=== PATIENT | female | born 1965 | race American Indian/Alaskan Native ===

== ENCOUNTER 2021-12-02 05:00 | Emergency (ER) | payer MEDICARE ==
[2021-12-02] MEDS ORDERED: DEXTROSE 50% IN WATER (25GM) 50 ML SYRINGE IV ONE (05:40)
--- NOTE | 2021-12-02 07:21 | Emergency Department Report ---
ED Seizure HPI - General Chief Complaint: Seizure Stated Complaint: DIABETIC SEIZURE Time Seen by Provider: 12/02/21 06:52 Source: patient Mode of arrival: Ambulatory Limitations: No Limitations - History of Present Illness Initial Comments: 56-year-old female the past medical history of diabetes, CAD, and hypertension presents to the hospital for seizure and hypoglycemia. Patient apparently had a seizure prior to arrival. Glucose of 59 in the ED. Patient received 1 amp of D50 and glucose improved to 97 1 hour later. Patient has had 1 cup of orange juice prior to my evaluation. She reports feeling better. Patient states her lately her sugar has been ranging from high to levels but she also has had decreased p.o. intake. She takes a short acting insulin with meals anywhere from 1-3 times a day and takes her long-acting insulin at 9 PM. Last night patient took her short acting insulin at 9 PM and was having persistent urination. She assumed her glucose was high and without rechecking her sugar took a long-acting insulin at midnight. Patient was supposed to take a long acting insulin at 9 PM. Patient endorses urinary frequency but denies dysuria, pain, or fever - Related Data Allergies Allergy/AdvReac Type Severity Reaction Status Date / Time azithromycin Allergy Hives Verified 12/02/21 05:43 vancomycin Allergy Hives Verified 12/02/21 05:43 ED Review of Systems ROS: Stated complaint: DIABETIC SEIZURE Other details as noted in HPI Comment: All other systems reviewed and negative ED Past Medical Hx - Past Medical History Hx Hypertension: Yes Hx Heart Attack/AMI: Yes Hx Diabetes: Yes - Surgical History Past Surgical History?: Yes Additional Surgical History: SPINE SURGERY. MRSA ED Physical Exam - General Limitations: No Limitations - Other Other exam information: General: No acute distress Head: Atraumatic Eyes: normal appearance ENT: Moist mucous membranes Neck: Normal appearance, no midline tenderness Chest: Clear to auscultation bilaterally CV: Regular rate and rhythm Abdomen: Soft, normal bowel sounds, nontender, nondistended, no rebound or guarding Back: Normal inspection Extremity: Normal inspection, full range of motion Neuro: Alert O x 3, no facial asymmetry, speech clear, no gross motor sensory de ficit, [id number] function intact Psych: Appropriate behavior Skin: No rash ED Course Vital Signs 12/02/21 05:37 Temperature 99.0 F Pulse Rate 98 H Respiratory 17 Rate Blood Pressure 170/72 O2 Sat by Pulse 99 Oximetry - Reevaluation(s) Reevaluation #1: 12/02/21 11:29 pt walk is slow, pt states she feels a little weak all over but has some difficulty ambulating at her baseline. Pt provided a lunch tray and encouraged to eat prior to d/c ED Medical Decision Making - Lab Data Result diagrams: 12/02/21 09:43 12/02/21 09:43 - EKG Data -: EKG Interpreted by Me EKG shows normal: sinus rhythm, intervals (qtc 400), QRS complexes (qrsd 85), ST-T waves (lat t wave inv) Rate: normal (73) - EKG Data When compared to previous EKG there are: previous EKG unavailable - Medical Decision Making 56-year-old female in the ED for hypoglycemia likely secondary to inappropriate insulin use. Patient received D50 and p.o. fluids/juice and maintain an adequate glucose level. Labs were unremarkable without acute abnormality and although patient does endorse urinary frequency there are no signs of UTI on UA results. Patient told to take her medication only as prescribed, eat appropriately, and monitor her glucose levels. Follow-up as an outpatient advised Critical Care Time: No Critical care attestation.: If time is entered above; I have spent that time in minutes in the direct care of this critically ill patient, excluding procedure time. ED Disposition Clinical Impression: Hypoglycemic reaction to insulin Disposition: HOME / SELF CARE / HOMELESS Is pt being admited?: No Instructions: Hypoglycemia, [id number] Additional Instructions: Take your medication as prescribed and make sure you eat appropriately and continue to monitor your blood sugar. Follow-up with your doctor or doctor/clinic provided. Return if symptoms worsen as indicated by your disc harge instructions. Referrals: PRIMARY CAREMD [Primary Care Provider] - 3-5 Days JAGDEEP CHEN MD [Staff Physician] - 3-5 Days Time of Disposition: 11:20
[2021-12-02 07:48] LABS: Bilirubin,Urine NEG (Negative); Blood,Urine NEG (Negative); Color,Urine Straw (Yellow); Urobilinogen,Urine < 2.0 mg/dL (<2.0); WBC,Urine < 1.0 /HPF (0.0-6.0)
[2021-12-02 10:08] LABS: Basophils % (Auto) 0.5 % (0.0-1.8); Eosinophils % (Auto) 0.3 % (0.0-4.3); Hematocrit 35.6 % (30.3-42.9); Hemoglobin 11.4 gm/dl (10.1-14.3); Lymphocytes # (Auto) 1.7 K/mm3 (1.2-5.4); Lymphocytes % (Auto) 19.1 % (13.4-35.0); Mean Corpuscular HGB Conc 32 % (30-34); Mean Corpuscular Volume 87 fl (79-97); Monocytes # (Auto) 0.6 K/mm3 (0.0-0.8); Monocytes % (Auto) 6.8 % (0.0-7.3); Platelet Count 272 K/mm3 (140-440); Red Blood Count 4.08 M/mm3 (3.65-5.03); Red Cell Distribution Width 13.9 % (13.2-15.2)
[2021-12-02 10:29] LABS: Alanine Aminotransferase 19 units/L (7-56); BUN/Creatinine Ratio 15; Blood Urea Nitrogen 15 mg/dL (7-17); Calcium 9.7 mg/dL (8.4-10.2); Hemolysis Index 5
[2021-12-02 11:40] VITALS: BP 160/75
== END 2021-12-02 12:21 | disposition home or self-care (01) ==
LOC: ED 05:00
DX: E11.649 Type 2 diabetes mellitus with hypoglycemia without coma (principal)
CPT/HCPCS: 36415; 80053; 81001; 82962; 85025; 93005; 96374; 99283